=== PATIENT | male | born 1990 | race Caucasian/White ===

== ENCOUNTER 2016-06-17 10:55 | Emergency (ER) | payer SELFPAY | END 2016-06-17 12:06 | disposition home or self-care (01) | LOC: D.ER 10:55 | DX: H66.91 Otitis media, unspecified, right ear (principal) ==

== ENCOUNTER 2016-09-14 12:06 | Emergency (ER) | payer SELFPAY | END 2016-09-14 19:00 | disposition left against medical advice (07) | LOC: D.ER 12:06 | DX: T24.001A Burn of unspecified degree of unspecified site of right lower limb, except ankle and foot, initial encounter (principal); X08.8XXA Exposure to other specified smoke, fire and flames, initial encounter; Y93.89 Activity, other specified; Y92.89 Other specified places as the place of occurrence of the external cause ==

== ENCOUNTER 2017-01-28 14:58 | Emergency (ER) | payer SELFPAY | END 2017-01-28 16:52 | disposition home or self-care (01) | LOC: D.ER 14:58 | DX: J02.9 Acute pharyngitis, unspecified (principal) ==

== ENCOUNTER 2020-01-29 20:13 | Observation (INO) | payer MEDICAID ==
[~2020-01-29] VITALS: Ht 177.8 cm; Wt 68.2 kg
[2020-01-29 20:34] VITALS: Ht 177.8 cm; Wt 68.2 kg
[2020-01-29 20:50] LABS: BASOPHILS 0.7 % (0-2); EOSINOPHILS 0.4 % (0-7); HEMATOCRIT 43.9 % (42.0-54.0); HEMOGLOBIN 15.5 g/dL (13.5-17.5); IMMATURE GRANULOCYTES 0.2 % (0-5); MCH 34.8 pg (26.0-34.0); MCHC 35.3 g/dL (31.0-37.0); MCV 98.7 fL (80.0-100.0); MEAN PLATELET VOLUME 9.2 fL (7.4-10.4); MONOCYTES 5.1 % (2-11); NEUTROPHILS 51.6 % (40-80); RBC 4.45 10x6/uL (4.20-6.10); RDW 12.1 % (11.5-14.5); WBC 9.2 10x3/uL (4.8-10.8)
[2020-01-29 20:51] LABS: PLATELET COUNT 346 10x3/uL (130-400)
[2020-01-29 21:10] LABS: CALC OSMOLALITY 284 mosm/kg (275-300); CALCIUM 8.3 mg/dL (8.5-10.1); CARBON DIOXIDE 24.8 mmol/L (21.0-32.0); CHLORIDE - SERUM 107 mmol/L (98-107); CREATININE - SERUM 0.9 mg/dL (0.6-1.3); GLUCOSE 73 mg/dL (74-106); POTASSIUM - SERUM 3.7 mmol/L (3.5-5.1); SODIUM 144 mmol/L (136-145); UREA NITROGEN 11 mg/dL (7-18); eGFR NON AFRICAN AMERICAN > 90 mL/min (90-120)
[2020-01-29 21:17] LABS: ALBUMIN 3.6 g/dL (3.4-5.0); ALKALINE PHOSPHATASE 157 U/L (30-120); ALT (SGPT) 77 U/L (10-68); AMYLASE - SERUM 217 U/L (25-115); BILIRUBIN - TOTAL 0.13 mg/dL (0.2-1.3); CREATINE KINASE 215 UL (21-232); LIPASE 1081 U/L (73-393); MAGNESIUM - SERUM 1.9 mg/dL (1.8-2.4); PROTEIN - SERUM 7.2 g/dL (6.4-8.2)
[2020-01-29 21:21] LABS: KETONE NEGATIVE (NEGATIVE); NITRITE NEGATIVE (NEGATIVE)
[2020-01-29 21:22] LABS: BILIRUBIN NEGATIVE (NEGATIVE); UROBILINOGEN NORMAL mg/dL (< 2)
[2020-01-29 21:26] LABS: UDS - AMPHET NEGATIVE QUAL (NEGATIVE); UDS - BARB NEGATIVE QUAL (NEGATIVE); UDS - BENZO NEGATIVE QUAL (NEGATIVE); UDS - COCAINE NEGATIVE QUAL (NEGATIVE); UDS - OPIATE NEGATIVE QUAL (NEGATIVE); UDS - PCP NEGATIVE QUAL (NEGATIVE); UDS - THC POSITIVE QUAL (NEGATIVE)
--- NOTE | 2020-01-30 | NUR ---
pt decided he wants to leave. madhu taylor informed. pt informed he can not leave due to earlier statements of SI. pt upset at this time.
[2020-01-30 01:11] VITALS: BP 136/74
--- NOTE | 2020-01-30 01:30 | NUR ---
PT PACING IN ROOM PT STATES THAT HE IS NOT SI AND IS SOBER NOW PT STATES THAT HE IS GOING TO CALL A RIDE AND WANTS TO GO HOME. PT INFORMED THAT HE CANT LEAVE TILL PSYCH COMES TO SEE IN HIM IN THE MORNING.
--- NOTE | 2020-01-30 02:00 | NUR ---
PT RIPPED OUT HIS IV. PT REFUSING FLUIDS PT REFUSING TO HAVE IV RESTARTED. PT UPSET STATES HE IS READY TO GO. ZOHREH SHEN INFORMED.
--- NOTE | 2020-01-30 04:00 | NUR ---
ZOHREH SHEN CALLED PT WANTING TO LEAVE. ZOHREH STATES TO HAVE SITTER PLACED ON PT. SHEAR TENDER INFORMED.
[2020-01-30 04:48] LABS: BASOPHILS 0.4 % (0-2); EOSINOPHILS 0.1 % (0-7); HEMOGLOBIN 13.5 g/dL (13.5-17.5); IMMATURE GRANULOCYTES 0.1 % (0-5); LYMPHOCYTES 25.5 % (15-50); MCH 34.3 pg (26.0-34.0); MCHC 34.6 g/dL (31.0-37.0); MEAN PLATELET VOLUME 9.2 fL (7.4-10.4); MONOCYTES 7.1 % (2-11); NEUTROPHILS 66.8 % (40-80); PLATELET COUNT 342 10x3/uL (130-400); RBC 3.94 10x6/uL (4.20-6.10); RDW 12.1 % (11.5-14.5); WBC 8.1 10x3/uL (4.8-10.8)
[2020-01-30 05:00] VITALS: BP 145/76
[2020-01-30 05:09] LABS: ALBUMIN 3.5 g/dL (3.4-5.0); ALKALINE PHOSPHATASE 142 U/L (30-120); ALT (SGPT) 70 U/L (10-68); CALC OSMOLALITY 273 mosm/kg (275-300); CHLORIDE - SERUM 104 mmol/L (98-107); CREATININE - SERUM 0.8 mg/dL (0.6-1.3); GLUCOSE 108 mg/dL (74-106); MAGNESIUM - SERUM 1.9 mg/dL (1.8-2.4); PHOSPHOROUS 2.8 mg/dL (2.5-4.9); POTASSIUM - SERUM 3.9 mmol/L (3.5-5.1); SODIUM 137 mmol/L (136-145); UREA NITROGEN 10 mg/dL (7-18); eGFR NON AFRICAN AMERICAN > 90 mL/min (90-120)
[2020-01-30 05:10] LABS: AMYLASE - SERUM 123 U/L (25-115); LIPASE 288 U/L (73-393)
--- NOTE | 2020-01-30 05:30 | NUR ---
PT FAMILY AT BEDSIDE THEY ARE WANTING TO TAKE PT HOME. PT UPSET ABOUT HAVING TO STAY.
--- NOTE | 2020-01-30 07:13 | NUR ---
CONSULT FOR PSYCH FAXED AT THIS TIME. STATES THEY WILL CALL
--- NOTE | 2020-01-30 08:59 | NUR ---
[facility] NOTIFIED PT BLOOD ALCOHOL 40 ET PT IS READY TO BE SCREENED.
--- NOTE | 2020-01-30 09:47 | NUR ---
PT IS A LOW RISK PER ASSESSMENT. PT DENIES SI OR EVER HAVING ATTEMPTED OR THOUGHTS OF SUICIDE. PT IS PLEASANT AND SMILING. NO S/S OF DEPRESSION NOTED. PT CONTRACTED FOR SAFETY. PT ADMITS TO "DRINKING TOO MUCH". PT STATED HE DOESN'T REMEMBER SAYING ANTHING ABOUT SUICIDE ON THE PREVIOUS NIGHT. PT STATED, "I WAS REALLY DRUNK." PT HAS A GIRLFRIEND AND SUPPORTIVE FAMILY. DR. LAO NOTIFIED OF RESULTS. RESOURCES GIVEN TO PT. REPORTED ASSESSMENT RESULTS TO CHARGE NURSE.
--- NOTE | 2020-01-30 09:51 | NUR ---
PSYCH SCREENER AT BEDSIDE.
[2020-01-30 10:20] VITALS: BP 134/53
--- NOTE | 2020-01-30 10:23 | NUR ---
PER FRANKY RN WITH [facility], PT IS LOW RISK FOR SELF HARM AND IS WILLING TO SIGN A NO HARM AGREEMENT IF REQUESTED.
--- NOTE | 2020-01-30 10:35 | NUR ---
DR CASTANON CONTACTED ET UPDATED ON PT STATUS. HE REQUESTS PT EAT A BLAND, SOFT DIET. IF TOLERATED, HE WILL COME DISCHARGE PT HOME. PT UPDATED WITH PLAN OF CARE. SOFT, BLAND DIET TRAY ORDERED.
--- NOTE | 2020-01-30 11:50 | NUR ---
PT BEING DISCHARGED PER DR. CASTANON.
== END 2020-01-30 12:34 | disposition home or self-care (01) ==
LOC: D.ER 20:13 → D.EDHOLD 23:16 → OBSVTIME 23:16 → D.EDHOLD 01-30 12:34
PROVIDERS: Family Medicine; ADMIT Family Medicine; ATTEND Family Medicine
DX: F10.229 Alcohol dependence with intoxication, unspecified (principal); Y90.8 Blood alcohol level of 240 mg/100 ml or more; K85.90 Acute pancreatitis without necrosis or infection, unspecified; F17.200 Nicotine dependence, unspecified, uncomplicated; G89.4 Chronic pain syndrome; R74.0 Nonspecific elevation of levels of transaminase and lactic acid dehydrogenase [LDH]